=== PATIENT | female | born 1950 | race African-American/Black ===

== ENCOUNTER → 2023-04-07 22:00 | Outpatient (REF) | payer BC, SELFPAY | LOC: DHSLP 22:00 | PROVIDERS: ATTENDING PHYSICIAN Internal Medicine; FAMILY PHYSICIAN Internal Medicine | DX: G47.33 Obstructive sleep apnea (adult) (pediatric) (principal) | CPT/HCPCS: 95800 ==

== ENCOUNTER → 2024-08-30 15:44 | Outpatient (REF) | payer OTHER, SELFPAY | LOC: RAD 15:44 | PROVIDERS: ATTENDING PHYSICIAN Nurse Practitioner Family | DX: R06.02 Shortness of breath (principal) | CPT/HCPCS: 71046 ==